=== PATIENT | male | born 1965 | race Two or more races ===

== ENCOUNTER 2020-11-02 17:35 | Emergency (ER) | payer OTHER, MEDICAID ==
[~2020-11-02] VITALS: Ht 177.8 cm; Wt 79.4 kg
[~2020-11-02 17:35] MED LIST: ASPI-394 PO; CHOL20007 PO; FOLI1TAB6 PO; MELO1TAB56 PO; PANT40T PO
[2020-11-02] MEDS ORDERED: levoFLOXacin 750MG 150 ML IV ONE (19:30)
[2020-11-02] MEDS ORDERED: CLINDAMYCIN 600MG IV 50 ML IV ONE (19:30)
[2020-11-02] MEDS ORDERED: methylPREDNISolone SOD SUCC 125 MG/2 ML VL IV ONE (19:30)
[2020-11-02] MEDS ORDERED: SODIUM CHLORIDE 0.9% 1,000 ML IV ONE (19:30)
[2020-11-02] MEDS ORDERED: KETOROLAC TROMETH 30 MG/ML 1ML VIAL IV ONE (19:45)
[2020-11-02] MEDS ORDERED: IOHEXOL 300 MG/ML 100ML BOTTLE IJ ONE (19:53)
[2020-11-02 20:19] LABS: Basophils # (auto) 0.1 10 ^3/uL (0-0.2); Eosinophils # (auto) 0.1 10 ^3/uL (0-0.8); Hematocrit 56.6 % (41.0-53.0); Neutrophils # (auto) 13.5 10 ^3/uL (1.6-8.6); Red Blood Cells 6.41 10^6/uL (4.5-5.90)
[2020-11-02 20:21] LABS: Basophils % (auto) 0.7 % (0.0-2.0); Eosinophils % (auto) 0.4 % (0.0-7.0); Hemoglobin 18.6 g/dL (13.5-17.5); Lymphocytes # (auto) 3.5 10 ^3/uL (0.4-5.4); Mean Corpuscular Hgb Conc. 32.8 g/dL (32.0-36.0); Mean Corpuscular Volume 88.4 fL (80.0-100.0); Monocytes # (auto) 1.1 10 ^3/uL (0-1.3); Monocytes % (auto) 5.9 % (0.0-12.0); Nucleated Red Blood Cells % 0.1 %; Red Cell Distribution Width 17.7 % (11.8-14.3); White Blood Cell 18.2 10^3/uL (4.4-10.8)
[2020-11-02 20:32] LABS: BUN/Creatinine Ratio 17.1; Calcium 9.9 mg/dL (8.5-10.1); Potassium 3.9 mmol/L (3.5-5.1)
[2020-11-03 03:32] VITALS: BP 129/86
== END 2020-11-03 03:48 | disposition short-term general hospital (02) ==
LOC: ER 17:35
DX: J02.9 Acute pharyngitis, unspecified (principal); M54.2 Cervicalgia; F17.210 Nicotine dependence, cigarettes, uncomplicated
CPT/HCPCS: 36415; 70491; 80048; 83605; 85025; 87040; 87426; 96365; 96368; 96375; 99285; J1885; J1956; J2930; J3490; J7030; Q9967

== ENCOUNTER 2021-06-01 09:10 | Emergency (ER) | payer OTHER, MEDICAID ==
[~2021-06-01] VITALS: Ht 175.3 cm; Wt 79.4 kg
[2021-06-01] MEDS ORDERED: KETOROLAC TROMETH 60MG/2ML VIAL IM ONE (09:45)
[2021-06-01 09:49] VITALS: BP 124/103
[2021-06-01 10:04] LABS: Urine Bacteria NONE SEEN /hpf (None Seen); Urine Blood Negative /uL (Negative); Urine Specific Gravity 1.014 (1.001-1.035); Urine WBC <1 /hpf (0 - 3)
[2021-06-01] MEDS ORDERED: BACL10TA PO (10:36)
[2021-06-01] MEDS ORDERED: IBUP800T27 PO (10:36)
== END 2021-06-01 10:40 | disposition home or self-care (01) ==
LOC: ER 09:10
DX: M79.10 Myalgia, unspecified site (principal); M54.6 Pain in thoracic spine; M54.50 Low back pain, unspecified; Z79.82 Long term (current) use of aspirin; Z79.899 Other long term (current) drug therapy
CPT/HCPCS: 72100; 81001; 93005; 96372; 99285; J1885

== ENCOUNTER 2021-06-08 07:37 | Emergency (ER) | payer OTHER, MEDICAID ==
[~2021-06-08] VITALS: Ht 175.3 cm; Wt 79.4 kg
[~2021-06-08 07:37] MED LIST changes: +BACL10TA PO; +IBUP800T27 PO
[2021-06-08 07:50] VITALS: BP 147/107
[2021-06-08] MEDS ORDERED: ACYC-161 GT (07:58)
[2021-06-08] MEDS ORDERED: FLUO0.024 EX (07:58)
[2021-06-08] MEDS ORDERED: TRAM-297 PO (07:59)
[2021-06-08] MEDS ORDERED: KETOROLAC TROMETH 60MG/2ML VIAL IM ONE (08:00)
== END 2021-06-08 08:13 | disposition home or self-care (01) ==
LOC: ER 07:37
DX: B02.9 Zoster without complications (principal); L30.9 Dermatitis, unspecified; Z79.899 Other long term (current) drug therapy; Z79.82 Long term (current) use of aspirin
CPT/HCPCS: 96372; 99283; J1885